=== PATIENT | male | born 1945 | race Caucasian/White ===

== ENCOUNTER 2025-03-14 13:40 | Inpatient (IN) | payer MEDICARE, MEDICAID ==
[~2025-03-14] VITALS: Ht 167.6 cm; Wt 65.8 kg
[2025-03-14 19:00] VITALS: BP 131/55; PULSE 63; RESP 18; TEMP 98.2; O2SAT 95
[2025-03-14] MEDS ORDERED: ACETAMINOPHEN 325 MG TABLET PO PRN (19:45)
[2025-03-14 20:00] VITALS: O2SAT 95
[2025-03-14] MEDS: SENNOSIDES 8.6 MG TABLET PO SCH (21:52)
[2025-03-14] MEDS: DOCUSATE SODIUM 100 MG CAPSULE PO SCH (21:52)
[2025-03-14] MEDS: APIXABAN 5 MG TABLET PO SCH (21:52)
[2025-03-14] MEDS: ATORVASTATIN CALCIUM 40 MG TABLET PO SCH (21:52)
[2025-03-14] MEDS: MEMANTINE HCL 10 MG TABLET PO SCH (21:53)
[2025-03-14] MEDS: MELATONIN 3 MG TABLET PO PRN (21:59)
[2025-03-15 06:00] VITALS: BP 117/50; PULSE 66; RESP 18; TEMP 97.5; O2SAT 94
[2025-03-15 06:43] LABS: BASOPHILS % (AUTO) 3.9 % (0.0-2.0); EOSINOPHILS % (AUTO) 7.5 % (1.0-6.0); HEMATOCRIT 45.3 % (41-53); HEMOGLOBIN 15.5 g/dL (13.5-17.5); LYMPHOCYTES # (AUTO) 2.6 K/uL (1.0-4.8); MEAN CORPUSCULAR HEMOGLOBIN 31.5 pg (26.0-34.0); MEAN CORPUSCULAR HGB CONC 34.2 G/dL (31.0-37.0); MEAN CORPUSCULAR VOLUME 92 fL (80-100); MONOCYTES # (AUTO) 0.7 K/uL (0.1-1.0); NEUTROPHILS # (AUTO) 4.9 K/uL (1.8-7.7); NEUTROPHILS % (AUTO) 52.6 % (40.0-70.0); PLATELET COUNT (AUTO) 232 K/uL (150-450); RED BLOOD CELL COUNT(AUTO) 4.91 MIL/uL (4.50-5.90); RED CELL DISTRIBUTION WIDTH 13.7 % (11.5-14.5); WHITE BLOOD COUNT (AUTO) 9.3 K/uL (4.5-11.0)
[2025-03-15 07:01] LABS: ALANINE AMINOTRANSFERASE 12 U/L (12-78); ALBUMIN 2.6 g/dL (3.4-5.0); ALKALINE PHOSPHATASE 75 U/L (46-116); ANION GAP 11 mmol/L (8-16); ASPARTATE AMINOTRANSFERASE 17 U/L (15-37); BILIRUBIN,TOTAL 0.7 mg/dL (0.1-1.0); CALCIUM, TOTAL 8.4 mg/dL (8.8-10.5); CARBON DIOXIDE 22 mmol/L (22-29); CHLORIDE 109 mmol/L (98-107); CREATININE 0.76 mg/dL (0.60-1.30); GLOMERULAR FILTR. RATE CALC > 60 mL/min (>60); GLUCOSE,RANDOM 102 mg/dL (70-110); POTASSIUM 3.4 mmol/L (3.5-5.1); SODIUM SERUM 142 mmol/L (136-145); TOTAL PROTEIN, SERUM 6.3 g/dL (6.4-8.2); UREA NITROGEN, BLOOD 13 mg/dL (7-18)
[2025-03-15 08:00] VITALS: BP 104/74; PULSE 88; RESP 18; TEMP 98.6; O2SAT 97
[2025-03-15] MEDS: ETHYL ALCOHOL 62% ANTISEPTIC NASAL SANITIZER 0.6 ML AMPUL NASAL SCH (08:23)
[2025-03-15] MEDS: CITALOPRAM HYDROBROMIDE 20 MG TABLET PO SCH (08:23)
[2025-03-15] MEDS: FAMOTIDINE 20 MG TABLET PO SCH (08:24)
[2025-03-15] MEDS: RisperiDONE 1 MG TABLET PO SCH (08:24)
[2025-03-15] MEDS: POTASSIUM CHLORIDE 20 MEQ ER TABLET PO ONE (10:18)
[2025-03-15 23:05] VITALS: BP 137/63; PULSE 63; RESP 18; TEMP 98.5; O2SAT 95
[2025-03-15 23:09] VITALS: O2SAT 95
[2025-03-16] MEDS: DOCUSATE SODIUM 283 MG/5 ML MINI-ENEMA PR PRN (06:08)
[2025-03-16 07:00] VITALS: BP 133/65; PULSE 58; RESP 18; TEMP 98.1; O2SAT 96
[2025-03-16] MEDS: MULTIVITAMINS WITH MINERALS, THERAPEUTIC TABLET PO SCH (09:38)
[2025-03-16] MEDS: DOCUSATE SODIUM 250 MG CAPSULE PO SCH (09:38)
[2025-03-16 12:01] VITALS: O2SAT 96
[2025-03-16 21:14] VITALS: BP 135/53; PULSE 63; RESP 18; TEMP 98.1; O2SAT 94
[2025-03-16] MEDS: PEG 400/HYPROMELLOSE/GLYCERIN 15 ML OPHTHALMIC SOLUTION OU PRN (21:19)
[2025-03-16] MEDS: SENNOSIDES 8.6 MG TABLET PO SCH (21:19)
[2025-03-16 22:44] LABS: APPEARANCE,URINE CLEAR (CLEAR); BILIRUBIN,URINE NEGATIVE (NEGATIVE); COLOR,URINE YELLOW (YELLOW); GLUCOSE, URINE (UA) NEGATIVE (NEGATIVE); KETONES,URINE NEGATIVE (NEGATIVE); LEUKOCYTE ESTERASE ,URINE TRACE (NEGATIVE); NITRATE,URINE POSITIVE (NEGATIVE); OCCULT BLOOD,URINE NEGATIVE (NEGATIVE); PH,URINE 5.5 (5.0-8.0); PROTEIN,URINE NEGATIVE (NEGATIVE); SPECIFIC GRAVITIY, URINE 1.024 (1.003-1.030); UROBILINOGEN,URINE <=1.0 mg/dL (<=1.0)
[2025-03-16 22:59] LABS: BACTERIA,URINE Many /HPF (None Seen); RBC,URINE 0-2 /HPF (0-2)
[2025-03-16 23:00] LABS: SQUAMOUS EPITHELIAL CELL,UR Few /LPF (None Seen)
[2025-03-16 23:02] VITALS: O2SAT 94
[2025-03-17 06:41] LABS: ANION GAP 10 mmol/L (8-16); CALCIUM, TOTAL 8.5 mg/dL (8.8-10.5); CARBON DIOXIDE 22 mmol/L (22-29); CHLORIDE 109 mmol/L (98-107); GLOMERULAR FILTR. RATE CALC > 60 mL/min (>60); GLUCOSE,RANDOM 107 mg/dL (70-110); POTASSIUM 4.2 mmol/L (3.5-5.1); SODIUM SERUM 141 mmol/L (136-145); UREA NITROGEN, BLOOD 14 mg/dL (7-18)
[2025-03-17 08:00] VITALS: BP 136/72; PULSE 62; RESP 18; TEMP 97.9; O2SAT 97
[2025-03-17] MEDS: CIPROFLOXACIN HCL 250 MG TABLET PO SCH (11:01)
[2025-03-17 20:00] VITALS: BP 132/69; PULSE 74; RESP 18; TEMP 98.2; O2SAT 95
[2025-03-18 08:00] VITALS: BP 131/57; PULSE 64; RESP 18; TEMP 97.3; O2SAT 95
[2025-03-18 20:00] VITALS: BP 133/84; PULSE 70; RESP 18; TEMP 97.9; O2SAT 95
[2025-03-19 08:00] VITALS: BP 134/78; PULSE 70; RESP 16; TEMP 98.8; O2SAT 93
[2025-03-19 20:00] VITALS: BP 152/57; PULSE 60; RESP 18; TEMP 97.9; O2SAT 96
[2025-03-19] MEDS: NYSTATIN 15 GM POWDER BOTTLE TP SCH (20:33)
[2025-03-19] MEDS: GuaiFENesin/D-METHORPHAN [SUGAR-FREE] 200-20MG/10 ML SYRUP UDCUP PO PRN (20:34)
[2025-03-20] MEDS ORDERED: CITA-144 PO (06:48)
[2025-03-20] MEDS ORDERED: APIX5TAB PO (06:53)
[2025-03-20] MEDS ORDERED: MEMA10TA24 PO (06:54)
[2025-03-20] MEDS ORDERED: FAMO20 PO (06:56)
[2025-03-20] MEDS ORDERED: RISP-31 PO (06:59)
[2025-03-20] MEDS ORDERED: MULT-1303 PO (07:23)
[2025-03-20] MEDS ORDERED: ATOR40TA28 PO (07:23)
[2025-03-20 09:00] VITALS: BP 132/54; PULSE 60; RESP 19; TEMP 97.3; O2SAT 93
[2025-03-20 20:00] VITALS: BP 144/65; PULSE 67; RESP 18; TEMP 98.1; O2SAT 96
[2025-03-21 07:30] VITALS: BP 134/62; PULSE 68; RESP 17; TEMP 97.9; O2SAT 95
[2025-03-21 08:44] VITALS: O2SAT 96
[2025-03-21 08:57] VITALS: BP 126/72; PULSE 78
[2025-03-21 19:25] VITALS: BP 146/60; PULSE 65; TEMP 97.7; O2SAT 97
[2025-03-21 23:11] VITALS: O2SAT 97
[2025-03-21] MEDS: BENZONATATE 100 MG CAPSULE PO PRN (23:53)
[2025-03-22 08:00] VITALS: BP 149/83; PULSE 67; RESP 18; TEMP 97.7; O2SAT 96
[2025-03-22 20:35] VITALS: BP 154/66; PULSE 63; RESP 18; TEMP 98.4; O2SAT 95
[2025-03-22 20:38] VITALS: O2SAT 95
[2025-03-23 08:00] VITALS: BP 143/64; PULSE 64; RESP 18; TEMP 98.2; O2SAT 98
[2025-03-23 20:36] VITALS: BP 157/73; PULSE 61; RESP 18; TEMP 97.5; O2SAT 94
[2025-03-23 23:01] VITALS: O2SAT 94
[2025-03-24 08:00] VITALS: BP 144/63; PULSE 63; RESP 18; TEMP 98.5; O2SAT 100
[2025-03-24] MEDS: AmLODIPine BESYLATE 2.5 MG TABLET PO SCH (08:52)
[2025-03-24 10:17] LABS: BASOPHILS % (AUTO) 0.6 % (0.0-2.0); EOSINOPHILS % (AUTO) 4.4 % (1.0-6.0); HEMOGLOBIN 15.9 g/dL (13.5-17.5); LYMPHOCYTES # (AUTO) 3.7 K/uL (1.0-4.8); LYMPHOCYTES % (AUTO) 40.7 % (22.0-44.0); MEAN CORPUSCULAR HEMOGLOBIN 31.5 pg (26.0-34.0); MEAN CORPUSCULAR HGB CONC 33.8 G/dL (31.0-37.0); MEAN CORPUSCULAR VOLUME 93 fL (80-100); MONOCYTES # (AUTO) 0.4 K/uL (0.1-1.0); MONOCYTES % (AUTO) 4.6 % (2.0-9.0); NEUTROPHILS # (AUTO) 4.5 K/uL (1.8-7.7); NEUTROPHILS % (AUTO) 49.7 % (40.0-70.0); PLATELET COUNT (AUTO) 235 K/uL (150-450); RED BLOOD CELL COUNT(AUTO) 5.03 MIL/uL (4.50-5.90); RED CELL DISTRIBUTION WIDTH 13.8 % (11.5-14.5); WHITE BLOOD COUNT (AUTO) 9.1 K/uL (4.5-11.0)
[2025-03-24 10:27] LABS: ANION GAP 8 mmol/L (8-16); CALCIUM, TOTAL 8.4 mg/dL (8.8-10.5); CARBON DIOXIDE 21 mmol/L (22-29); CHLORIDE 107 mmol/L (98-107); CREATININE 1.09 mg/dL (0.60-1.30); GLOMERULAR FILTR. RATE CALC > 60 mL/min (>60); GLUCOSE,RANDOM 178 mg/dL (70-110); POTASSIUM 4.2 mmol/L (3.5-5.1); SODIUM SERUM 136 mmol/L (136-145); UREA NITROGEN, BLOOD 13 mg/dL (7-18)
[2025-03-24 20:00] VITALS: BP 156/60; PULSE 63; RESP 18; TEMP 97.9; O2SAT 95
[2025-03-25 08:00] VITALS: BP 125/80; PULSE 72; RESP 18; TEMP 98.4; O2SAT 100
[2025-03-25] MEDS: AmLODIPine BESYLATE 5 MG TABLET PO SCH (09:27)
[2025-03-25 19:54] VITALS: BP 110/54; PULSE 74; RESP 18; TEMP 98.2; O2SAT 94
[2025-03-25 20:00] VITALS: O2SAT 94
[2025-03-25] MEDS: RisperiDONE 1 MG TABLET PO SCH (20:19)
[2025-03-26 08:01] VITALS: BP 131/70; PULSE 66; RESP 18; TEMP 97.3; O2SAT 92
[2025-03-26 10:03] VITALS: PULSE 70; O2SAT 95
[2025-03-26 20:00] VITALS: O2SAT 92
[2025-03-26 20:01] VITALS: BP 157/62; PULSE 67; RESP 16; TEMP 98.8; O2SAT 92
[2025-03-27 08:00] VITALS: BP 133/54; PULSE 76; RESP 18; TEMP 98.1; O2SAT 94
[2025-03-27] MEDS ORDERED: MEMA10TA24 PO (10:59)
[2025-03-27] MEDS ORDERED: AMLO-257 PO (10:59)
[2025-03-27] MEDS ORDERED: FAMO20 PO (10:59)
[2025-03-27] MEDS ORDERED: DOCU-412 PO (10:59)
[2025-03-27] MEDS ORDERED: CITA-144 PO (10:59)
[2025-03-27] MEDS ORDERED: APIX5TAB PO (10:59)
[2025-03-27] MEDS ORDERED: ATOR40TA71 PO (10:59)
[2025-03-27] MEDS ORDERED: SENN-374 PO (10:59)
[2025-03-27] MEDS ORDERED: MULT-1303 PO (10:59)
[2025-03-27] MEDS ORDERED: RISP-31 PO (10:59)
[2025-03-27 11:02] VITALS: PULSE 75; O2SAT 93
[2025-03-27] MEDS ORDERED: MELATONIN 5 MG TABLET PO PRN (12:00)
== END 2025-03-27 14:10 | disposition home or self-care (01) | DRG 57 ==
LOC: 2WR 18:29
PROVIDERS: ADMIT Physical Medicine & Rehabilitation; ATTEND Physical Medicine & Rehabilitation
DX: I69.354 Hemiplegia and hemiparesis following cerebral infarction affecting left non-dominant side (principal); I82.C12 Acute embolism and thrombosis of left internal jugular vein; E46 Unspecified protein-calorie malnutrition; N39.0 Urinary tract infection, site not specified; Q21.12 Patent foramen ovale; J44.9 Chronic obstructive pulmonary disease, unspecified; B96.1 Klebsiella pneumoniae [K. pneumoniae] as the cause of diseases classified elsewhere; E27.8 Other specified disorders of adrenal gland; E78.5 Hyperlipidemia, unspecified; E87.6 Hypokalemia; G30.9 Alzheimer's disease, unspecified; I10 Essential (primary) hypertension; F02.80 Dementia in other diseases classified elsewhere, unspecified severity, without behavioral disturbance, psychotic disturbance, mood disturbance, and anxiety; I25.10 Atherosclerotic heart disease of native coronary artery without angina pectoris; K59.09 Other constipation; N32.81 Overactive bladder; R40.0 Somnolence; R13.11 Dysphagia, oral phase; R32 Unspecified urinary incontinence; I69.353 Hemiplegia and hemiparesis following cerebral infarction affecting right non-dominant side; Z53.20 Procedure and treatment not carried out because of patient's decision for unspecified reasons; R33.9 Retention of urine, unspecified; Z74.09 Other reduced mobility; I25.2 Old myocardial infarction; Z79.01 Long term (current) use of anticoagulants; Z82.3 Family history of stroke; Z85.46 Personal history of malignant neoplasm of prostate; Z90.79 Acquired absence of other genital organ(s); Z92.3 Personal history of irradiation; Z68.23 Body mass index [BMI] 23.0-23.9, adult
CPT/HCPCS: 71045; 80048; 80053; 81001; 85025; 87077; 87081; 87086; 87186; 92507; 92523; 97110; 97112; 97116; 97150; 97163; 97167; 97530; 97535; 99366; 36415-L1; 36415-TC